=== PATIENT | female | born 1945 | race Caucasian/White ===

== ENCOUNTER 2017-01-02 10:26 | Day surgery (SDC) | payer MEDICARE, BC ==
[~2017-01-02 10:26] MED LIST: Lactated Ringers 1,000 ML IV SCH; Lidocaine 1%/Sod Bicarbonate in NS 8.4% 1 ML Syringe IV PRN; Sodium Chloride 0.9% 10 ML Syringe FLUSH PRN
--- NOTE | 2017-01-02 11:22 | PCM.PREANE ---
Preanesthetic Assessment - Allergies Allergies/Adverse Reactions: Allergies Allergy/AdvReac Type Severity Reaction Status Date / Time amoxicillin Allergy Nausea and Verified 01/01/17 14:36 Vomiting penicillin V Allergy Hives Verified 01/01/17 14:36 sulfacetamide Allergy Nausea and Verified 01/01/17 14:36 Vomiting PreAnesthesia Questionnaire HEENT History: Reports: Impaired vision Cardiovascular History: Reports: Other (see below) Other Cardiovascular History: palpitations Respiratory History: Reports: None Gastrointestinal History: Reports: Chronic constipation, Hemorrhoids, Hiatal hernia, Other (see below) Other Gastrointestinal History: liver cysts Genitourinary History: Reports: UTI, recurrent 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: Reports: Fibroids, Other (see below) Other OB/BYN History: abnormal pap, hot flashes, menopause Musculoskeletal History: Reports: Other (see below) Other Musculoskeletal History: osteopenia Neurological History: Reports: None Psychiatric History: Reports: Other (see below) Other Psychiatric History: fatigue Endocrine/Metabolic History: Reports: None Hematologic History: Reports: None Immunologic History: Reports: None Oncologic (Cancer) History: Reports: None, Other (see below) Other Oncologic History: adrenal corticol adeinoma, skin cancer Dermatologic History: Reports: Eczema, Psoriasis, Other (see below) Other Dermatologic History: dermatitis - Past Surgical History Head Surgeries/Procedures: Reports: None HEENT Surgical History: Reports: Cataract surgery GI Surgical History: Reports: Colonoscopy, EGD - SUBSTANCE USE Smoking Status *Q: Never Smoker Recreational Drug Use History: No - HOME MEDS Home Medications: Home Meds Esomeprazole Magnesium [Nexium] 20 mg PO DAILY 01/01/17 [History] Polyethylene Glycol 3350 [MiraLAX] 1 dose PO DAILY 01/01/17 [History] - CURRENT (IN HOUSE) MEDS Current Meds: Current Medications Lactated Ringer's (Ringers, Lactated) 1,000 mls @ 125 mls/hr IV ASDIRECTED ZUNILDA Stop: 01/02/17 23:00 Lidocaine/Sodium Bicarbonate (Buffered Lidocaine 1% In Ns 8.4%) 0.25 ml IV ONETIME PRN PRN Reason: Prior to IV Start Stop: 01/02/17 18:00 Sodium Chloride (Saline Flush) 10 ml FLUSH ASDIRECTED PRN PRN Reason: Keep Vein Open Stop: 01/02/17 18:00 Preanesthetic Assessment - ANESTHESIA/TRANSFUSION/FAMILY HX Anesthesia/Transfusion History: No Prior Transfusion(s), Prior Anesthesia Type of Anesthesia Reaction: Reports: Unknown Family History of Anesthesia Reaction: No Intubation History: Unknown Type of Transfusion Reactions: Reports: Unknown - REVIEW OF SYSTEMS Constitutional: Reports: no symptoms BID MANAGER: Reports: no symptoms Respiratory: Reports: no symptoms Cardiovascular: Reports: palpitations (last fall was last occurance ) GI: Reports: no symptoms Other: Reports: None - PHYSICAL ASSESSMENT HR: 52 O2 Sat by Pulse Oximetry: 99 RR: 16 BP: 128/57 Temp: 36.1 C Height: 1.55 m Weight: 55 kg NPO Status Date: 01/01/17 NPO Status Time: 23:00 ASA Class: 2 Mental Status: Alert & Oriented x3 Dentition: Reports: Normal Dentition Thyro-Mental Finger Breadths: 3 Mouth Opening Finger Breadths: 3 ROM/Head Extension: Full Respiratory Status: lungs clear to auscultation bilaterally Cardiovascular Status: regular rate & rhythm, normal S1, S2, no murmur, blood pressure WNL - ALLERGIES Allergies/Adverse Reactions: Allergies Allergy/AdvReac Type Severity Reaction Status Date / Time amoxicillin Allergy Nausea and Verified 01/01/17 14:36 Vomiting penicillin V Allergy Hives Verified 01/01/17 14:36 sulfacetamide Allergy Nausea and Verified 01/01/17 14:36 Vomiting - BLOOD Blood Available: No Product(s) Available: None - ANESTHESIA PLAN Preop Beta Anjana: No Anesthesia Type Planned: MAC - ACKNOWLEDGEMENTS Pt an Appropriate Candidate for the Planned Anesthesia: Yes Alternatives and Risks of Anesthesia Discussed w Pt/Guardian: Yes Pt/Guardian Understands and Agrees with Anesthesia Plan: Yes
--- NOTE | 2017-01-02 12:23 | PCM.HP ---
H&P History of Present Illness - General Date of Service: 01/02/17 Admit Problem/Dx: epigastric/sternal burning, reflux, hiatal hernia, lower abdominal pain, constipation Source of Information: Patient History Limitations: Reports: No limitations - History of Present Illness Initial Comments - Free Text/Narative: CC: Abdominal pain HPI: The patient is a 71-year-old female referred by Pearl Carter NP for endoscopy for left-sided abdominal pain, persistent gastritis. Patient had a CT scan 2015 at [facility] which showed small hiatal hernia. Liver cysts. Uterus showed some areas of enhancement possibly due to mild fibroid change. Appendix is normal. Mild increased stool within the transverse and left colon. Mild compression deformity with an L2 which appeared to be old. I last saw the patient on 11/29/16. She denies any major changes to her health history. she reports the elbow pain she had did resolve when she went to the chiropractor. She is taking Prilosec daily has been forgetting to take Zantac and has not taken for one week. Does have stomach burning today, she did not take Prilosec. She does feel she ate some bad food on Saturday, pumpkin pie and green pepper and had diarrhea and vomiting was fine the next day. Did complete all but one ounce of her prep. Previously reported -Abdominal burning constant for years off and on. In September symptoms became severe. Did take Nexium in the past. In September would take baking soda to relieve. Would make better for an hour. In the am she has no pain. After she eats will have a constant burning. After she started Prilosec and Zantac and now has only had the burning sensation a few times. When I initially saw the patient she was only taking the PPI in am and Zantac before bed. She had some right elbow pain, that she felt may be related to PPI. She has been on Zantac since September. Burning is right above her belly button , sometimes will have an esophogeal burning. 4 years ago went in for this and was told she had "slow transit." Hx of [facility] and was told she had slow transit. No RUQ pain, no white or greasy stools. Spicy foods and acidic foods do not bother her. Avoids grapes and bananas as just doesn't feel good after eating. Denies any ripping tearing sensation to the abdomen. She reports sugar seems to cause her problems. She reports she tried a Fabi diet 4-5 years ago and this seemed to help. She reports the Zantac and Prilosec at times do not control the burning. She describes a burning as a substernal burning. She feels almost everything seems to burn. In particular high sugar such as ice cream and chocolate. She has chronic upper back pain. She sees a chiropractor for this. She denies that the sternal pain occurs with exercise. She reports that exercise actually seemed to improve her sternal pain. She also reports a history of a left-sided ache that seems to come and go for a year. She is not sure what is causing it. Nothing makes this better or worse. She thought it was ovarian or cyclical. Had TVUS in 2016. Fibroids noted as well as nabothian cysts. Hx of constipation controlled with Miralax. NO:diarrhea. NO problems with fatty meals. NO: hematochezia/ melena/blood on tissue paper. Hx of hemorrhoids, no longer has. Has 1-2 soft, brown, formed, BMs daily. Bowel movements are described as regular and easy to pass. No unintentional weight loss. Has gained weight, 10-12 pounds in a six month period. No change in stool caliber. Denies history of ulcerative colitis or Crohn's disease. Denies any family history of inflammatory bowel disease or GI cancers. Last colonoscopy was 2011. [address] Dumont. There was mild inflammation of the right colon. Cold biopsies were taken. Colonic mucosa with occasional lymphoid aggregates were noted. No nausea, vomiting, or dysphagia. She did also have an EGD done [place] [address] Dumont. No abnormalities reported on EGD report. No biopsies taken. When I last saw her she reported chest heaviness and hx of palpitations in the summer. These have both resolved. At her last visit with me I order a CBC, CMP , TSH, Troponin and EKG in the clinic today. Troponin was negative. TSH was 2.66 , T4 was 1.2 these are normal. CBC showed slightly low RBC count at 3.93 and slightly increased MCV at 100.5. This should be monitored by PCP. PCP should consider B12 and folate studies. CMP was normal with the exception of the glucose was slightly elevated at 117. Patient to follow up with PCP for continued monitoring of this. EKG was otherwise normal in sinus bradycardia at 54.. - Related Data Allergies/Adverse Reactions: Allergies Allergy/AdvReac Type Severity Reaction Status Date / Time amoxicillin Allergy Nausea and Verified 01/01/17 14:36 Vomiting penicillin V Allergy Hives Verified 01/01/17 14:36 sulfacetamide Allergy Nausea and Verified 01/01/17 14:36 Vomiting Home Medications: Home Meds Esomeprazole Magnesium [Nexium] 20 mg PO DAILY 01/01/17 [History] Polyethylene Glycol 3350 [MiraLAX] 1 dose PO DAILY 01/01/17 [History] Past Medical History HEENT History: Reports: Impaired vision Cardiovascular History: Reports: Other (see below) Other Cardiovascular History: palpitations Respiratory History: Reports: None Gastrointestinal History: Reports: Chronic constipation, Hemorrhoids, Hiatal hernia, Other (see below) Other Gastrointestinal History: liver cysts Genitourinary History: Reports: UTI, recurrent MANAGER UI History: Reports: Fibroids, Other (see below) Other OB/BYN History: abnormal pap, hot flashes, menopause Musculoskeletal History: Reports: Other (see below) Other Musculoskeletal History: osteopenia Neurological History: Reports: None Psychiatric History: Reports: Other (see below) Other Psychiatric History: fatigue Endocrine/Metabolic History: Reports: None Hematologic History: Reports: None Immunologic History: Reports: None Oncologic (Cancer) History: Reports: None, Other (see below) Other Oncologic History: adrenal corticol adeinoma, skin cancer Dermatologic History: Reports: Eczema, Psoriasis, Other (see below) Other Dermatologic History: dermatitis - Past Surgical History Head Surgeries/Procedures: Reports: None HEENT Surgical History: Reports: Cataract surgery GI Surgical History: Reports: Colonoscopy, EGD Social & Family History - Tobacco Use Smoking Status *Q: Never Smoker - Caffeine Use Caffeine Use: Reports: None - Recreational Drug Use Recreational Drug Use: No Drug Use in Last 12 Months: No H&P Review of Systems - Review of Systems: Review Of Systems: See Below Free Text/Narrative: Denies any exertional chest pain or shortness of breath. No history of any easy bleeding or bruising. No personal or familial history of clotting or bleeding disorders. No history of anesthetic complications. No history of familial anesthetic complications. Denies presence/history of chest pain. Hx of palpitations in the summer had episodes of palpitations that would come and go over the summer, would last seconds. If occurred when she was walking would get light headed. Had at her last visit with me reported chest heaviness for a week. At that time felt like if she took a deep breath this would relieve the pressure. didn't notice when she lies down. [place] like it may be due to her bra. Had No pain with taking deep breaths. . No left sided chest pain, no jaw pain, no shortness of breath, no diaphoresis. Reports that the chest heaviness did resolve after she went to the chiropractor. Had CT heart score in 2013 was 0. Patient had small pericardial effusion noted at that time. Previously Reported dizziness to PCP. PCP felt that her right ear complaints were contributing to issues of dizziness. This has resolved. Hx of fatigue was concerned about thyroid. Thryoid testing was done. NO: lower extremity edema, dyspnea at rest, orthopnea, claudication, wheezing. NO: obstructive sleep apnea, she does snore loudly. NO: chronic cough. NO: upper respiratory symptoms in the last two weeks. No history of blood thinner use. No history of anemia. No history of seizure or stroke. No history of fever, chills, or nightsweats. Hot flashes do wake her up. No prior cardiology or pulmonology evaluation. All other systems reviewed and were negative except as per history of present illness General: Reports: no symptoms HEENT: Reports: no symptoms Pulmonary: Reports: No Symptoms Cardiovascular: Reports: no symptoms Gastrointestinal: Reports: Abdominal pain, Other (See hpi) Genitourinary: Reports: no symptoms Musculoskeletal: Reports: no symptoms Skin: Reports: no symptoms Psychiatric: Reports: no symptoms Neurological: Reports: No Symptoms Hematologic/Lymphatic: Reports: no symptoms Immunologic: Reports: no symptoms Exam - Exam Exam: See Below - Vital Signs Vital Signs: Last Vital Signs Temp 36.1 C 01/02/17 11:30 Pulse 52 L 01/02/17 11:30 Resp 16 01/02/17 11:30 BP 128/57 L 01/02/17 11:30 Pulse Ox 99 01/02/17 11:30 Weight: 55 kg - Exam General: alert, oriented, cooperative HEENT: Conjunctiva clear Lungs: Clear to auscultation, Normal respiratory effort Cardiovascular: regular rate, regular rhythm. No: systolic murmur, diastolic murmur Abdomen: soft Back Exam: normal inspection Extremities: normal inspection. No: clubbing, cyanosis, edema Skin: warm, dry, intact (multiple seborrheic keratoses) Neurological: cranial nerves intact, normal speech Neuro Extensive - Mental Status: alert, oriented x3, normal mood/affect, normal cognition, memory intact Psychiatric: alert, normal affect, normal mood *Q Meaningful Use (ADM) - VTE *Q VTE Criteria *Q: - Stroke *Q Stroke Criteria *Q: - AMI *Q AMI Criteria *Q: - Problem List (1) Epigastric pain SNOMED Code(s): 48637847 ICD Code: R10.13 - EPIGASTRIC PAIN Status: Acute Current Visit: Yes (2) Reflux esophagitis SNOMED Code(s): 444316217 ICD Code: K21.0 - GASTRO-ESOPHAGEAL REFLUX DISEASE WITH ESOPHAGITIS Status : Acute Current Visit: Yes (3) Hiatal hernia SNOMED Code(s): 97275828 ICD Code: K44.9 - DIAPHRAGMATIC HERNIA WITHOUT OBSTRUCTION OR GANGRENE Status: Acute Current Visit: Yes (4) Lower abdominal pain SNOMED Code(s): 00118169 ICD Code: R10.30 - LOWER ABDOMINAL PAIN, UNSPECIFIED Status: Acute Current Visit: Yes (5) Constipation SNOMED Code(s): 26970467 ICD Code: K59.00 - CONSTIPATION, UNSPECIFIED Status: Acute Current Visit : Yes Qualifiers: Constipation type: unspecified constipation type Qualified Code(s): K59.00 - Constipation, unspecified Problem List Initiated/Reviewed/Updated: Yes Orders Last 24hrs: Active Orders 24 hr Category Date Time Status Communication Order [RC] ROUTINE Care 01/02/17 11:51 Active Cooling Warming Measures [RC] ASDIRECTED Care 01/02/17 11:51 Active Notify Provider [RC] ASDIRECTED Care 01/02/17 11:51 Active Peripheral IV Care [RC] . DIRECTED Care 01/02/17 00:01 Active Verify Patient Consent Obtain [RC] ASDIRECTED Care 01/02/17 00:01 Active Lactated Ringers [Ringers, Lactated] 1,000 ml Med 01/02/17 00:01 Active IV ASDIRECTED Lidocaine 1%/Sod Bicarbonate [Buffered Lidocaine 1% in Med 01/02/17 00:01 Active NS 8.4%] 0.25 ml IV ONETIME PRN Sodium Chloride 0.9% [Saline Flush] Med 01/02/17 00:01 Active 10 ml FLUSH ASDIRECTED PRN Medication Administration Instruction [OM.PC] Routine Oth 01/02/17 00:01 Ordered Peripheral IV Insertion Adult [OM.PC] Routine Oth 01/02/17 00:01 Ordered Medication Orders Lactated Ringer's (Ringers, Lactated) 1,000 mls @ 125 mls/hr IV ASDIRECTED ZUNILDA Stop: 01/02/17 23:00 Last Admin: 01/02/17 11:00 Dose: 125 mls/hr Lidocaine/Sodium Bicarbonate (Buffered Lidocaine 1% In Ns 8.4%) 0.25 ml IV ONETIME PRN PRN Reason: Prior to IV Start Stop: 01/02/17 18:00 Last Admin: 01/02/17 11:00 Dose: 0.25 ml Sodium Chloride (Saline Flush) 10 ml FLUSH ASDIRECTED PRN PRN Reason: Keep Vein Open Stop: 01/02/17 18:00 Assessment/Plan Comment:: 71yr female with epigastric/sternal burning, reflux, hiatal hernia, lower abdominal pain, constipation, need for diagnostic EGD and diagnostic colonoscopy Patient can perform 4 METS of physical activity without chest pain or shortness of breath. Dense breast tissue on mammogram Hx of Chest heaviness, fatigue, and hx of palpitations -resolved PLAN: We discussed performing a diagnostic EGD and diagnostic colonoscopy. We discussed the procedure and post operative expectations. . This procedure will be done today at [facility], due to hx of palpitations, orders were placed and sent. Dense breast tissue on mammogram, recommend 3D mammograms in future for screening. I personally reviewed the patient's previous medical records and laboratory studies. Patient verbalized understanding and agreed with care plan. ESTHER Calderon General Surgery Department [facility]
[2017-01-02] MEDS ORDERED: Propofol 200 MG/20 ML SDV ONE ×3 (13:07→13:23)
[2017-01-02] MEDS ORDERED: Lidocaine 1% 6 ML ONE (13:07)
[2017-01-02] MEDS ORDERED: Midazolam 1 MG/ML 2 ML SDV ONE (13:08)
[2017-01-02] MEDS ORDERED: fentaNYL 100 MCG/2 ML SDV ONE (13:08)
--- NOTE | 2017-01-02 13:59 | PCM.OPNOTE ---
- General Post-Op/Procedure Note Date of Surgery/Procedure: 01/02/17 Operative Procedure(s): 1. Diagnostic EGD with cold forceps biopsy. 2. Diagnostic colonoscopy with cold forceps polypectomy Pre Op Diagnosis: Abdominal pain Post-Op Diagnosis: Gastritis, colon polyp Anesthesia Technique: [facility] [place] Primary Surgeon: Blanka Barron Anesthesia Provider: Rut Adame Pathology: 1. Small bowel biopsy 2. Antral biopsy 3. Distal esophageal biopsy 4. Polyp adjacent to the appendiceal orifice Fluid Replacement, Intraop: 500 (mL crystalloid) EBL in mLs: 1 Complications: None Condition: Good Free Text/Narrative:: INDICATION FOR PROCEDURE: The patient is a 71-year-old woman who was referred to me by DEREK Al for evaluation of left-sided abdominal pain, persistent gastritis. Performing a colonoscopy and EGD and the associated risks of the procedures had been discussed with the patient. The patient found these risks acceptable and agreed to proceed. DESCRIPTION OF PROCEDURE: The patient was taken to the operating room and placed in the left lateral decubitus position. After induction of adequate sedation, a bite block was placed. A standard Olympus gastroscope was inserted into the oropharynx and guided down the esophagus without difficulty. The gastroesophageal junction was appreciated at 38 cm from the teeth. There was no evidence of stricture or esophageal ulcerations. The scope was advanced into the stomach, and there was mild diffuse gastritis. The scope was passed into the proximal jejunum and the duodenum which were unremarkable. There were no petechiae or ulcerations. The proximal jejunum was grossly normal in appearance. Multiple cold forceps biopsies were obtained of the proximal jejunum and duodenum. The scope was withdrawn into the antrum, and additional cold forceps biopsies were obtained. The remainder of the gastric body was examined, and there were no other abnormalities. The scope was retroflexed, and there was no evidence of hiatal hernia. The scope was straightened and withdrawn to the GE junction. Additional cold forceps biopsies were obtained of the distal esophagus. The scope was withdrawn through the remainder of the esophagus and no further abnormalities were noted. The posterior oropharynx was grossly normal in appearance. The scope was fully withdrawn and attention was then turned to the colonoscopy. A digital rectal exam was performed which was unremarkable. An Olympus colonoscope was inserted into the rectum and guided under direct visualization to the appendiceal orifice and ileocecal valve. The scope was then slowly withdrawn through the colon. The quality of the prep was excellent. There was no evidence of angiodysplasias or diverticulum. There was a small polyp that was sessile adjacent to the appendiceal orifice. This was removed in its entirety using cold forceps and retrieved. The scope was withdrawn into the rectum and retroflexed. There was no significant prominence of the patient's internal hemorrhoids. The scope was straightened, the colon was desufflated, and the scope was withdrawn. The patient was awakened from sedation and transferred to the recovery room in stable condition having tolerated the procedure well. POSTOPERATIVE PLAN: The patient will follow up in approximately 7-10 days to discuss pathology and how their symptoms are progressing. The patient is to continue her Nexium 20mg daily as well as daily MiraLax. I have asked the patient to follow a GERD\gastritis diet. The patient is to call with any worsening of symptoms or questions prior to the appointment.
[2017-01-02 14:05] VITALS: BP 86/45
--- NOTE | 2017-01-02 14:10 | PCM48HPAN ---
Post Anesthesia Note - EVALUATION WITHIN 48HRS OF ANESTHETIC Vital Signs in Normal Range: Yes Patient Participated in Evaluation: Yes Respiratory Function Stable: Yes Airway Patent: Yes Cardiovascular Function Stable: Yes Hydration Status Stable: Yes Pain Control Satisfactory: Yes Nausea and Vomiting Control Satisfactory: Yes Mental Status Recovered: Yes
== END 2017-01-02 14:35 | disposition home or self-care (01) ==
LOC: JD.SDS 10:26
PROVIDERS: ATTEND Surgery
DX: K29.50 Unspecified chronic gastritis without bleeding (principal); K63.5 Polyp of colon; K20.9 Esophagitis, unspecified; Z88.0 Allergy status to penicillin; Z88.1 Allergy status to other antibiotic agents; Z88.2 Allergy status to sulfonamides; Z79.899 Other long term (current) drug therapy; Z98.890 Other specified postprocedural states
CPT/HCPCS: 43239; 45380; J2250; J3010; J7120; 00810; 88305; J2704

== ENCOUNTER 2025-03-08 08:51 | Emergency (ER) | payer MEDICARE, BC ==
[2025-03-08] MEDS ORDERED: Sodium Chloride 0.9% 10 ML Syringe FLUSH PRN (09:31)
[2025-03-08 10:33] LABS: BASOPHILS PERCENT AUTO 0.4 % (0.0-1.0); EOSINOPHILS PERCENT AUTO 0.8 % (0.0-6.0); HEMATOCRIT 37.9 % (37.0-47.0); HEMOGLOBIN 12.7 gm/dl (12.0-16.0); IMMATURE GRAN ABSOLUTE AUTO 0.01 K/mm3 (0.00-0.05); IMMATURE GRAN PERCENT AUTO 0.2 % (0.0-0.4); LYMPHOCYTES ABSOLUTE AUTO 1.1 K/mm3 (1.0-4.8); LYMPHOCYTES PERCENT AUTO 21.2 % (24.0-44.0); MEAN CORPUSCULAR HEMOGLOBIN 32.2 pg (28.0-32.0); MEAN CORPUSCULAR HGB CONC 33.5 g/dl (32.0-36.0); MEAN CORPUSCULAR VOLUME 96.2 fl (83.0-99.0); MEAN PLATELET VOLUME 8.9 fl (9.4-12.3); MONOCYTES ABSOLUTE AUTO 0.4 K/mm3 (0.0-0.8); MONOCYTES PERCENT AUTO 7.1 % (0.0-8.0); NEUTROPHILS ABSOLUTE AUTO 3.7 K/mm3 (1.8-7.7); NEUTROPHILS PERCENT AUTO 70.3 % (41.0-71.0); PLATELET COUNT,PLT 241 K/mm3 (150-400); RED BLOOD CELL COUNT 3.94 M/mm3 (4.10-5.30); WHITE BLOOD CELL COUNT,WBC 5.19 K/mm3 (3.9-11.3)
[2025-03-08 11:06] LABS: A/G RATIO 1.4 (1-2); ALBUMIN 3.8 g/dl (3.4-5.0); ANION GAP 12.2 (5-15); BILIRUBIN TOTAL 0.5 mg/dL (0.2-1.0); CALCIUM 9.7 mg/dL (8.5-10.1); EST CRCL DRUG DOSING (CG) 35.55 mL/min; POTASSIUM,K 4.2 mEq/L (3.5-5.1); PROTEIN TOTAL,TP 6.6 g/dl (6.4-8.2)
[2025-03-08] MEDS: Sodium Chloride 0.9% 1,000 ML IV SCH (11:17)
[2025-03-08 11:18] LABS: APPEARANCE,URINE CLEAR (Clear); BILIRUBIN,URINE NEGATIVE (Negative); COLOR,URINE YELLOW (Yellow); GLUCOSE,URINE NEGATIVE (Negative); KETONES,URINE NEGATIVE (Negative); LEUKOCYTE ESTERASE,URINE NEGATIVE (Negative); NITRITE,URINE NEGATIVE (Negative); OCCULT BLOOD,URINE TRACE-INTACT (Negative); PH,URINE 7.5 (5.0-8.0); PROTEIN,URINE NEGATIVE (Negative); UROBILINOGEN,URINE 0.2 (0.2-1.0)
[2025-03-08 11:24] LABS: BACTERIA,URINE FEW /hpf (FEW); HYALINE CASTS,URINE 0-5 /lpf (0-5); MUCUS,URINE FEW /hpf (FEW); RBC,URINE 0-5 /hpf (0-5); SQUAMOUS EPITHELIAL CELLS,UR 0-5 /hpf (0-5); WBC,URINE 0-5 /hpf (0-5)
[2025-03-08] MEDS: Sodium Chloride 0.9% 10 ML Syringe FLUSH PRN (11:26)
[2025-03-08] MEDS: Iopamidol 612 MG/ML 100 ML Bottle IVPUSH ONE (11:27)
[2025-03-08 14:19] VITALS: BP 149/61; PULSE 59
== END 2025-03-08 12:40 | disposition home or self-care (01) ==
LOC: JD.ED 08:51
DX: R10.31 Right lower quadrant pain (principal); Z88.0 Allergy status to penicillin; Z88.8 Allergy status to other drugs, medicaments and biological substances; Z79.899 Other long term (current) drug therapy
CPT/HCPCS: 36415; 74177; 80053; 81001; 83690; 85025; 96360; 99284; J7030; Q9967; 99282